=== PATIENT | male | born 1985 | race Hispanic/Latino ===

== ENCOUNTER 2016-05-31 12:34 | Emergency (ER) | payer SELFPAY ==
[2016-05-31] MEDS ORDERED: DEXAMETHASONE 4 MG/ML VIAL ONE (14:42)
== END 2016-05-31 15:31 | disposition home or self-care (01) ==
LOC: ER 12:34
DX: J03.91 Acute recurrent tonsillitis, unspecified (principal)
CPT/HCPCS: 87804; 87880; 96372